=== PATIENT | male | born 1950 | race Caucasian/White ===

== ENCOUNTER → 2016-12-06 | Outpatient (CLI) | payer OTHER ==
[~2016-12-06] MED LIST: ASPIRIN325 MG PO; CLONIDINE HCL0.1 MG PO; GLUCOPHAGE500 MG PO; JANUMET 50/51 TABLET PO; LISINOPRIL-HCT1 EACH PO; METFORMIN; METFORMIN HCL1000 M1 PO; METFORMIN HCL1000 MG PO; VALIUM5 MG PO; ZESTORETIC 20-1 EAC1 NG
== END | disposition home or self-care (01) ==
LOC: NUC 07:12
DX: I25.10 Atherosclerotic heart disease of native coronary artery without angina pectoris (principal)
CPT/HCPCS: 78452; 93017; A9500; J2785